=== PATIENT | female | born 1985 | race Caucasian/White ===

== ENCOUNTER 2023-12-17 14:29 | Emergency (ER) | payer MEDICAID ==
[~2023-12-17] VITALS: Ht 162.6 cm; Wt 68.0 kg
[2023-12-17 14:31] VITALS: BP 133/82; PULSE 100; RESP 16; TEMP 97.7; O2SAT 99
== END 2023-12-17 17:46 | disposition left against medical advice (07) ==
LOC: ER 14:29
DX: R06.02 Shortness of breath (principal); Z53.21 Procedure and treatment not carried out due to patient leaving prior to being seen by health care provider
CPT/HCPCS: 71045; 93005